=== PATIENT | female | born 1995 | race Caucasian/White ===

== ENCOUNTER 2016-10-23 07:22 | Emergency (ER) | payer OTHER ==
[2016-10-23] MEDS ORDERED: Ondansetron INJ* 2 MG/ML VIAL IV ONE (07:39)
[2016-10-23] MEDS: NS 0.9% 1000 ML* 1,000 ML IV ONE ×2 (07:48→09:13)
[2016-10-23 07:51] LABS: Hematocrit 39 % (35-47); Hemoglobin 12.6 g/dl (12.0-16.0); Mean Corpuscular HGB Conc 32 g/dl (31-36); Mean Corpuscular Hemoglobin 24 pg (27-31); Mean Corpuscular Volume 75 fL (80-97); Mean Platelet Volume 8 um3 (7.4-10.4); Red Blood Count 5.19 10^6/ul (4.0-5.4); Red Cell Distribution Width 15 % (10.5-15); White Blood Count 12.3 10^3/ul (3.5-10.8)
[2016-10-23 07:52] LABS: Add Diff/Slide Review? Slide Review Added; Comments Flag Yes
[2016-10-23] MEDS ORDERED: Pantoprazole IV* 40 MG IV ONE (08:01)
[2016-10-23] MEDS ORDERED: Ketorolac INJ* 30 MG/ML 1 ML VIAL IV PUSH ONE (08:02)
[2016-10-23 08:07] LABS: ALT 15 U/L (7-52); AST 17 U/L (13-39); Albumin 4.1 g/dL (3.2-5.2); Alkaline Phosphatase 77 U/L (34-104); Anion Gap 9 mmol/L (2-11); BUN/Creatinine Ratio 14.9 (8-20); Blood Urea Nitrogen 15 mg/dL (6-24); C Reactive Protein 9.26 mg/L (< 5.00); CO2 Carbon Dioxide 25 mmol/L (22-32); Calcium 9.5 mg/dL (8.6-10.3); Chloride 103 mmol/L (101-111); EGFR African American 88.1 (>60); EGFR Non-African American 68.5 (>60); Globulin 2.8 g/dL (2-4); Glucose 148 mg/dL (70-100); Lipase 144 U/L (11.0-82.0); Potassium 3.1 mmol/L (3.5-5.0); Sodium 137 mmol/L (133-145); Total Protein 6.9 g/dL (6.4-8.9)
--- NOTE | 2016-10-23 08:10 | ED ---
Abdominal Pain/Female - HPI Summary HPI Summary: A 21 y/o female came in to [facility] [place] presenting w/ a gradual onset of constant mid- abd pain starting this morning around 7am today 10/23/16. Patient points to pain in the epigastric area that does not radiate. Nothing makes the pain better or worse. Pt reports nausea and one episode of vomiting while in ED however denies any hematemesis. LBM was yesterday and was normal. Denies fever/chills, constipation, diarrhea, urinary symptoms, genitalia symptoms, melena, hematochezia, chest pain and difficulty breathing. Admits to drinking alcohol last night but denies spicy food. She states she drank about half a beer and tries not to drink because when she does it gives her an upset stomach. She has been taking Aleve for pain a few times every week. She states she ate a salad last night. States she had lower abdominal pain about 4 weeks ago that caused her to pass out and was told by doctors that it was more than likely a ovarian cyst at that time. Current pain is different. Denies any PMHx. - History of Current Complaint Chief Complaint: EDAbdPain Stated Complaint: ABD PAIN Time Seen by Provider: 10/23/16 07:29 Hx Obtained From: Patient, Family/Core Dipper - boyfriend Hx Last Menstrual Period: 2 weeks ago Onset/Duration: Sudden Onset Timing: Constant Severity Initially: Moderate Severity Currently: Moderate Pain Intensity: 8 Pain Scale Used: 0-10 Numeric Location: Diffuse, Epigastric Radiates: No Character: Burning Aggravating Factor(s): Food - alcohol Alleviating Factor(s): Nothing Associated Signs and Symptoms: Positive: Nausea, Vomiting Allergies/Adverse Reactions: Allergies Allergy/AdvReac Type Severity Reaction Status Date / Time No Known Allergies Allergy Verified 10/23/16 07:33 PMH/Surg Hx/FS Hx/Imm Hx Endocrine/Hematology History: Denies: Hx Anticoagulant Therapy Cardiovascular History: Denies: Hx Hypertension Respiratory History: Denies: Hx Asthma - Surgical History Surgery Procedure, Year, and Place: none - Immunization History Immunizations Up to Date: Yes Infectious Disease History: No Infectious Disease History: Denies: Traveled Outside the [place] in Last 30 Days - Family History Known Family History: Positive: Hypertension - Social History Alcohol Use: Occasionally Substance Use Type: Reports: None Smoking Status (MU): Never Smoked Tobacco Review of Systems Constitutional: Negative Eyes: Negative ENT: Negative Cardiovascular: Negative Respiratory: Negative Positive: Abdominal Pain, Vomiting, Nausea Genitourinary: Negative Musculoskeletal: Negative Skin: Negative Neurological: Negative Psychological: Normal All Other Systems Reviewed And Are Negative: Yes Physical Exam Triage Information Reviewed: Yes Vital Signs On Initial Exam: Initial Vitals Temp Pulse Resp BP Pulse Ox 96.5 F 82 16 86/48 100 10/23/16 07:24 10/23/16 07:24 10/23/16 07:24 10/23/16 07:24 10/23/16 07:24 pressure was re-taken a few minutes later to be 108/59 Vital Signs Reviewed: Yes Appearance: Positive: Well-Nourished, Ill-Appearing, Pain Distress - mild Skin: Positive: Warm, Skin Color Reflects Adequate Perfusion, Dry Head/Face: Positive: Normal Head/Face Inspection Eyes: Positive: Normal, Conjunctiva Clear ENT: Positive: Normal ENT inspection, Hearing grossly normal, Pharynx normal Neck: Positive: Supple, Nontender, No Lymphadenopathy Respiratory/Lung Sounds: Positive: Clear to Auscultation, Breath Sounds Present Cardiovascular: Positive: Normal, RRR, Pulses are Symmetrical in both Upper and Lower Extremities Abdomen Description: Positive: No Organomegaly, Soft, Other: - tender on palpation of epigastric area and RUQ, negative Rovsing, psoas, obturator and rebound. (-) Steele's. No scars, deformity, gil sign, ecchymosis, or discolorations.. Negative: Bruit, CVA Tenderness (R), CVA Tenderness (L), Distended, Guarding, McBurney's Point Tenderness, Peritoneal Signs, Splenomegaly Bowel Sounds: Positive: Present Pelvic Exam: Positive: external exam normal, speculum exam normal, bimanual exam normal, no cerv. motion tender, no masses. Negative: active bleeding, blood, discharge, tender w/ cervical motion, tender adnexa, tender uterus Musculoskeletal: Positive: Normal, Strength/ROM Intact Neurological: Positive: Normal, Sensory/Motor Intact, Alert, Oriented to Person Place, Time, CN Intact II-III Psychiatric: Positive: Normal, Affect/Mood Appropriate - [place] Coma Scale Coma Scale Total: 15 Diagnostics - Vital Signs Vital Signs Temp Pulse Resp BP Pulse Ox 10/23/16 07:37 78 15 99 10/23/16 07:35 108/59 10/23/16 07:24 96.5 F 82 16 86/48 100 - Laboratory Lab Results: Lab Results 10/23/16 Range/Units 07:43 WBC 12.3 H (3.5-10.8) 10^3/ul RBC 5.19 (4.0-5.4) 10^6/ul Hgb 12.6 (12.0-16.0) g/dl Hct 39 (35-47) % MCV 75 L (80-97) fL MCH 24 L (27-31) pg MCHC 32 (31-36) g/dl RDW 15 (10.5-15) % Plt Count 329 (150-450) 10^3/ul MPV 8 (7.4-10.4) um3 Neut % (Auto) 38.1 (38-83) % Lymph % (Auto) 45.2 (25-47) % Pepin % (Auto) 6.5 (1-9) % Eos % (Auto) 9.3 H (0-6) % Baso % (Auto) 0.9 (0-2) % Absolute Neuts (auto) 4.7 (1.5-7.7) 10^3/ul Absolute Lymphs (auto) 5.6 H (1.0-4.8) 10^3/ul Absolute Monos (auto) 0.8 (0-0.8) 10^3/ul Absolute Eos (auto) 1.1 H (0-0.6) 10^3/ul Absolute Basos (auto) 0.1 (0-0.2) 10^3/ul Absolute Nucleated RBC 0.01 10^3/ul Nucleated RBC % 0.1 Result Diagrams: 10/23/16 07:43 10/23/16 07:43 Lab Statement: Any lab studies that have been ordered have been reviewed, and results considered in the medical decision making process. - CT abdomen/pelvis CT Interpretation: Positive (See Comments) - Proximal small bowel wall thickening up to 11 mm in thickness, mild mesenteric lymphadenopathy and inflammatory change of the mesenteric root could be seen in the setting of infectious or inflammatory bowel disease. CT Interpretation Completed By: Radiologist Re-Evaluation - Re-Evaluation First Eval Re-Evaluation Time: 09:00 Change: Improved - feeling better after toradol, zofran and protonix. Second Eval Re-Evaluation Time: 11:27 Change: Improved - still feels much better and would like to eat Abdominal Pain Fem Course/Dx - Course Course Of Treatment: Labs, UA, pelvic exam obtained. Given toradol, zofran and protonix. Patient had releif. Appears to be suffering from gastritis on PE and after obtaining history with use of alcohol, NSAIDs and dealing with stress. However with elevated glucose, WBC and lipase CT scan was obtained. Positive for some mesenteric lymphadenopathy and small bowel wall thickening irritable vs infectious versus inflammatory. Possible colits, spoke with Dr Murillo about case. Referred to GI for further testing and work up. Prescribed zofran, PPI for daily use and pain management, follow up with PCP. - Diagnoses Differential Diagnosis: Positive: Appendicitis, Constipation, Diverticulitis, Gall Bladder Disease, Irritable Bowel Syndrome, Ovarian Cyst, Pancreatitis, Peptic Ulcer Disease, , Urinary Tract Infection, Other Provider Diagnoses: Gastritis, Colitis, Epigastric pain - Provider Notifications Discussed Care Of Patient With: Dr Murillo Discharge - Discharge Plan Condition: Stable Disposition: HOME Prescriptions: HYDROcodone/ACETAMIN 5-325 MG* [[place] 5-325 TAB*] 1 tab PO Q6H PRN #10 tab MDD 4 PRN Reason: Pain Ondansetron ODT TAB* [Zofran 4 MG Odt TAB*] 4 mg PO Q6H PRN #20 tab.odt PRN Reason: Nausea Pantoprazole TAB (NF) [Protonix TAB (NF)] 20 mg PO DAILY #30 tab Patient Education Materials: Gastritis (ED), Diet for Ulcers and Gastritis (ED) , Colitis (ED) Referrals: No Primary Care Phys,NOPCP [Primary Care Provider] - Oswald Lockwood MD [Medical Doctor] - [facility] – [place] PHYSICIAN REFERRAL [Outside] Additional Instructions: Take prescribed medication to help with nausea as needed. Take protonix to protect your stomach lining. Avoid eating spicy and citrus foods and alcohol. Do not lay down after eating. Take prescribed pain medication to help with pain as needed. Take with food and do not take unless necessary. Do not drive while taking this medication as it is a narcotic. Follow up with your primary care provider and also make an appointment with GI for further workup. If symptoms worsen such as increasing pain, profuse vomiting, blood in stool or vomit please seek medical attention promptly.
[2016-10-23] MEDS ORDERED: NS 0.9% 1000 ML* 1,000 ML IV ONE (09:14)
[2016-10-23] MEDS ORDERED: Iohexol 300* (CONTRAST) 10 ML SDV IV ONE (09:22)
[2016-10-23 09:49] LABS: Urine Bilirubin Negative (Negative); Urine Glucose Negative (Negative); Urine Nitrite Negative (Negative)
--- NOTE | 2016-10-23 11:00 | RAD ---
CLINICAL HISTORY: Mid abdominal pain COMPARISON: None TECHNIQUE: Contrast enhanced CT examination of the abdomen and pelvis from the lung bases through the initial tuberosities. The patient received 100 mL Omnipaque 300 intravenously prior to imaging.The patient received oral contrast as well prior to imaging. FINDINGS: VISUALIZED LUNG BASES: The visualized lung bases are grossly clear. There is no pleural effusion. ABDOMEN AND PELVIS: The liver, spleen, pancreas and adrenal glands are grossly normal in appearance. The gallbladder is normal. The kidneys are normal in appearance without focal mass, calcification or signs of hydronephrosis. Incidental note is made of a retroaortic left renal vein. The oral contrast has progressed as far as the splenic flexure. In the proximal small bowel there is wall thickening measuring up to 11 mm in thickness (axial image 42 and coronal image 45 for example). The appendix is identified in the posterior right mid level abdomen measuring 7 mm in diameter (sagittal image 44). There is no contrast or air in the lumen but the appendix is not pathologically enlarged and there are no focal inflammatory changes of the surrounding mesenteric fat. The mesenteric lymph nodes are top normal and numerous measuring up to 9 mm in short axis diameter. In addition there is "tethering" and stranding of the mesenteric root characteristic of a "comb sign" (coronal image 39). There is no retroperitoneal lymphadenopathy. The pelvic viscera is normal in appearance. The abdominal aorta and iliac arteries are normal in course and diameter. There are no sinister bone lesions. IMPRESSION: Proximal small bowel wall thickening up to 11 mm in thickness, mild mesenteric lymphadenopathy and inflammatory change of the mesenteric root could be seen in the setting of infectious or inflammatory bowel disease.
[2016-10-23 11:41] VITALS: BP 102/65
== END 2016-10-23 11:46 | disposition home or self-care (01) ==
LOC: ED 07:22
DX: R10.13 Epigastric pain (principal); K29.70 Gastritis, unspecified, without bleeding; R11.2 Nausea with vomiting, unspecified; R10.9 Unspecified abdominal pain; K52.9 Noninfective gastroenteritis and colitis, unspecified
CPT/HCPCS: 36415; 74177; 80053; 81003; 83605; 83690; 84702; 85025; 86140; 87480; 87510; 87661; 96374; 96375; 99283; J1885; J2405; Q9967